=== PATIENT | female | born 2000 | race Caucasian/White ===

== ENCOUNTER 2025-10-06 16:18 | Outpatient (CLI) | payer OTHER, SELFPAY ==
[2025-10-06 17:05] LABS: Hematocrit 36.6 % (36-47); Hemoglobin 12.10 g/dL (11.27-16.99); Mean Corpuscular HGB Conc 33.1 g/dL (30-55); Mean Corpuscular Hemoglobin 28.4 pg (27-33); Mean Corpuscular Volume 85.9 fl (85-98); Nucleated Red Blood Cells % 0 %; Platelet Count 217 10^3/cmm (157-399); Red Blood Count 4.26 10^6/uL (3.85-5.65); White Blood Count 7.40 10^3/uL (3.29-11.43)
[2025-10-06 20:28] LABS: HIV 1 & 2 Antigen Non-Reactive (Non-Reactiv)
== END 2025-10-06 16:19 | disposition home or self-care (01) ==
LOC: LAB 16:21
PROVIDERS: Family Provider Family Medicine; Visit Provider Family Medicine
DX: Z34.80 Encounter for supervision of other normal pregnancy, unspecified trimester (principal)
CPT/HCPCS: 36415; 85025; 86592; 86762; 86803; 86850; 86900; 87340; 87806

== ENCOUNTER 2025-10-23 12:30 | Outpatient (CLI) | payer OTHER, SELFPAY ==
--- NOTE | 2025-10-23 12:41 | US_ITS ---
WS: [id number] OB ultrasound, 10/23/2025 Clinical Data: 9 WEEKS GESTATION OF Comparison: None. Findings: There is a single interuterine . heart rate is 169 beats per minute. The cervix is 4.8 cm and closed. The crown-rump length measured 5.3 cm and the gestational age is 10 weeks 6 days. The estimated gestational age 12w0d is with an TEMI of approximately 05/07/2026. The left ovary measured 4.0 cm x 3.9 cm x 1.8 cm. The right ovary measured 3.2 cm x 2.6 cm x 3.2 cm. No ovarian cyst or masses are seen. US/US OB <=14 wk fetus w transvag Impression: 1. Single interuterine . 2. Estimated gestational age of 12w0d with an TEMI of 05/07/2026. 3. heart rate 169 beats per minute.
== END 2025-10-23 12:31 | disposition home or self-care (01) ==
LOC: RAD 12:31
PROVIDERS: Family Provider Family Medicine; PCP Family Medicine; Visit Provider Family Medicine
DX: Z34.91 Encounter for supervision of normal pregnancy, unspecified, first trimester (principal); Z3A.09 9 weeks gestation of pregnancy
CPT/HCPCS: 76801; 76817